=== PATIENT | male | born 1945 | race Caucasian/White ===

== ENCOUNTER 2021-09-19 11:37 | Emergency (ER) | payer MEDICARE, OTHER ==
[~2021-09-19] VITALS: Ht 182.9 cm; Wt 91.0 kg
--- NOTE | 2021-09-19 11:50 | RAD ---
EXAM: CT Head without IV contrast CLINICAL HISTORY: Reason: NEURO DEFICITS / Spl. Instructions: / History: COMPARISON: None. TECHNIQUE: Routine CT of the head without contrast. PQRS compliance statement - One or more of the following individualized dose reduction techniques wer e utilized for this study: 1. Automated exposure control 2. Adjustment of the mA and/or kV according to patient size 3. Use of iterative reconstruction technique FINDINGS: There is no evidence of hemorrhage, mass or extra-axial fluid collection. Region of encephalomalacia and pineda-white heterogeneity in the right frontal temporal region likely f rom prior infarct. Otherwise, baires-white differentiation is grossly maintained. Subcortical, perivent ricular as well as deep white matter foci of hypoattenuation likely changes of chronic small vessel d isease. There is no mass effect or shift of the intracranial structures. The ventricles and cerebral sulci are prominent for the patients stated age consistent with generaliz ed cerebral volume loss. The cerebellum and brainstem are unremarkable. The calvarium demonstrates no evidence of fracture or focal lesion. There is normal aeration of the visualized paranasal sinuses and mastoid air cells. The visualized portions of the orbits are normal. Atherosclerotic calcifications of the intracranial internal carotid and vertebral arteries is seen. IMPRESSION: 1. No evidence for acute intracranial hemorrhage. 2. Region of encephalomalacia and pineda-white heterogeneity in the right frontal temporal region like ly from prior infarct. If there is clinical concern for superimposed acute infarct, MRI is recommende d. 3. White matter changes likely chronic small vessel disease. Findings discussed with emergency room physician at 09/19/2021 11:45 AM. FOR INTERNAL CODING PURPOSES RESULT CODE: (C) Electronically signed by: Foster Acuna MD (09/19/2021 11:48 AM) [id number]
--- NOTE | 2021-09-19 11:50 | PHYS DOC ---
General Adult EDM: Chief Complaint: NEURO SYMPTOMS/DEFICITS HPI: HPI: 76-year-old male past medical history of CVA with left-sided hemiparesis and hemiplegia, diabetes, hyperlipidemia and history of A. fib on Eliquis, presents to the ED brought in by EMS as a code stroke, concern for sudden onset altered mental status, aphasia while eating breakfast. At baseline patient does have a right-sided gaze preference and intact speech. Patient's sister, Micaela Abbott present emergency department. Patient's brother, Kendrick Diego (who is a physician) is the medical DPOA also present. 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 Pt is a full code. Review of Systems: Review of Systems: ROS: Unobtainable due to aphasia and mental status Allergies: Allergies: Allergies Coded Allergies Type Severity Reaction Last Updated Verified No Known Drug Allergies 09/19/21 No Physical Exam: PE: Constitutional: Nontoxic appearing, in no distress, tachycardic and hypotensive on arrival HENT: Normocephalic, atraumatic, dry mucous membranes Eyes: EOMI, conjunctiva normal, no discharge. Neck: Normal range of motion, supple, Cardiovascular: S1/2 present, irregular rhythm Lungs & Thorax: bilateral equal chest rise, no tachypnea or increased work of breathing Abdomen: soft, no tenderness, Skin: Warm, dry, no erythema, no rash. [] Extremities: No tenderness, no cyanosis, Neurologic: Alert, moves right upper extremity to pain/localizes, no facial droop, Psychologic: Calm mood, normal affect EKG: EKG: A. fib and RVR 145 bpm, left axis deviation, QTC 49 four, T wave inversion one and aVL, no ST ovation or ST depression, PVC present Radiology/Procedures: Radiology/Procedures: IMAGING REPORT Signed PATIENT: LUDIN DIEGO ACCOUNT: [id number] : 1945 LOCATION: ER AGE: 76 SEX: M EXAM STATUS: REG ER ORD. PHYSICIAN: RENITA HERNANDEZ DO REASON: ALTERED MENTAL STATUS PROCEDURE: CHEST AP ONLY Single AP view of the chest. Comparison: 9. Indication: Altered mental status Findings: The heart is not enlarged. There is no pneumothorax or effusion. No air space or interstitial disease. Impression: 1. No acute cardiopulmonary process. Electronically signed by: Camilo Montaño MD (09/19/2021 12:45 PM) [id number] DICTATED AND SIGNED BY: CAMILO MONTAÑO MD DATE: 09/19/211244 CC: NON,STAFF; RENITA HERNANDEZ Paddy DO ~MTH0 0 IMAGING REPORT Signed PATIENT: LUDIN DIEGO ACCOUNT: [id number] : 1945 LOCATION: ER AGE: 76 SEX: M EXAM STATUS: REG ER ORD. PHYSICIAN: TESSA HADDAD APRN REASON: NEURO DEFICITS PROCEDURE: CT CODE STROKE HEAD WO EXAM: CT Head without IV contrast CLINICAL HISTORY: Reason: NEURO DEFICITS / Spl. Instructions: / History: COMPARISON: None. TECHNIQUE: Routine CT of the head without contrast. PQRS compliance statement - One or more of the following individualized dose reduction techniques were utilized for this study: 1. Automated exposure control 2. Adjustment of the mA and/or kV according to patient size 3. Use of iterative reconstruction technique FINDINGS: There is no evidence of hemorrhage, mass or extra-axial fluid collection. Region of encephalomalacia and pineda-white heterogeneity in the right frontal temporal region likely from prior infarct. Otherwise, baires-white differentiation is grossly maintained. Subcortical, periventricular as well as deep white matter foci of hypoattenuation likely changes of chronic small vessel disease. There is no mass effect or shift of the intracranial structures. The ventricles and cerebral sulci are prominent for the patients stated age consistent with generalized cerebral volume loss. The cerebellum and brainstem are unremarkable. The calvarium demonstrates no evidence of fracture or focal lesion. There is normal aeration of the visualized paranasal sinuses and mastoid air c ells. The visualized portions of the orbits are normal. Atherosclerotic calcifications of the intracranial internal carotid and vertebral arteries is seen. IMPRESSION: 1. No evidence for acute intracranial hemorrhage. 2. Region of encephalomalacia and pineda-white heterogeneity in the right frontal temporal region likely from prior infarct. If there is clinical concern for superimposed acute infarct, MRI is recommended. 3. White matter changes likely chronic small vessel disease. Findings discussed with emergency room physician at 09/19/2021 11:45 AM. FOR INTERNAL CODING PURPOSES RESULT CODE: (C) Electronically signed by: Foster Garcia MD (09/19/2021 11:48 AM) [id number] DICTATED AND SIGNED BY: FOSTER GARCIA MD DATE: 09/19/21 1144 CC: TESSA HADDAD APRN; NON,STAFF; RENITA HERNANDEZ DO ~MTH0 0 IMAGING REPORT Signed PATIENT: LUDIN DIEGO ACCOUNT: [id number] : 1945 LOCATION: ER AGE: 76 SEX: M EXAM STATUS: REG ER ORD. PHYSICIAN: RENITA HERNANDEZ DO REASON: unresponsive PROCEDURE: CT ANGIOGRAPHY HEAD AND NECK EXAM: 1. CTA HEAD WITH AND WITHOUT CONTRAST. 2. CTA NECK WITH AND WITHOUT CONTRAST. HISTORY: Unresponsive, cerebrovascular accident. TECHNIQUE: Computed tomographic angiography of the head and neck was performed before and after the intravenous administration of iodinated contrast. Three- dimensional reconstructions were also performed. One or more of the following individualized dose reduction techniques were utilized for this examination: 1. Automated exposure control. 2. Adjustment of the mA and/or kV according to patient size. 3. Use of iterative reconstruction technique. COMPARISON: Today's CT. FINDINGS: Angiographic findings: The aortic arch has a typical branching pattern. The arch vessels demonstrate present at the medial thickening. There is mild stenosis at the origin of the left common carotid artery. More distally, predominantly uncalcified plaquing results in mild stenosis of the left carotid bulb with luminal diameter similar to the internal carotid diameter. There is no significant right CCA stenosis. There is subtotal stenosis just beyond the origin of the right cervical internal carotid artery secondary to noncalcified plaquing. It is patent more distally, but with mild perfusion delay consistent with significant proximal stenosis. There is no significant left cervical internal carotid artery stenosis. The external carotid systems are patent. There is severe stenosis at the origin of the left vertebral artery. There is multifocal mild to moderate stenosis within its cervical portion. A density adjacent to the lumen at C1 is likely an atherosclerotic calcification. The left vertebral artery occludes just proximal to the foramen magnum. The left posterior inferior cerebellar artery appears to fill by collateralization from the anterior inferior cerebellar artery. There is moderate atherosclerotic irregularity of the right vertebral artery at the foramen magnum with only mild stenosis. There is multifocal mild to moderate stenosis within the midportion of the b asilar artery. Both posterior cerebral arteries are patent. The posterior communicating arteries are visualized. Small excrescences from the lumen of the cavernous internal carotid arteries most likely reflect infundibula. These measure 1 mm on the right and 2 mm on the left. A small aneurysm is suspected along the inferior aspect of the right supraclinoid internal carotid artery measuring 2 mm. There is mild to moderate stenosis of both supraclinoid internal carotid arteries. The right middle cerebral artery territory is attenuated in the region of the chronic infarct, but remains patent. The left middle cerebral artery is patent.. The anterior cerebral arteries are patent. The anterior communicating artery is visualized. Nonangiographic findings: There is no intracranial hemorrhage. There is a moderate to large chronic infarct throughout the right middle cerebral artery territory. There is mild chronic microangiopathic white matter change elsewhere. The ventricles are normal in size and position. The paranasal sinuses appear clear. The orbits are unremarkable. The temporal bones are unremarkable. Bone windows reveal no suspicious lesions. The lung apices demonstrate mild bilateral groundglass opacities. There is scarring or atelectasis in the superior segment of the right lower lobe. The parotid glands and submandibular glands are unremarkable. An 8 mm nodule in the right thyroid lobe is most likely benign. Further assessed sonographically if there is persistent concern. There are no laryngeal or pharyngeal masses. There are no pathologically enlarged lymph nodes. IMPRESSION: 1. Subtotal stenosis of the right proximal cervical internal carotid artery. 2. Occlusion of the left vertebral artery just proximal to the foramen magnum may be chronic. It is severely stenotic proximally. 3. Mild to moderate stenosis of the right vertebral artery at the foramen magnum. 4. Multifocal mild to moderate stenosis of the basilar artery. 5. Mild to moderate stenosis of both supraclinoid internal carotid arteries. 6. Small outpouchings along the intracranial internal carotid arteries most likely reflect infundibula. One inferiorly along the right supraclinoid internal carotid artery may be a 2 mm aneurysm. This could be followed in one year if there is persistent concern. 7. Moderate to large chronic right middle cerebral artery territory infarct. 8. Mild interstitial infiltrates in the apices may reflect atelectasis. Correlate to exclude atypical pneumonia. These findings were called to Dr. Hernandez by Fredis Nayak on 09/19/2021 at 1:00 PM. PQRS Compliance Statement - Stenosis calculations for CT, MR and conventional angiography are based upon measurement of the distal ICA diameter in accordance with the NASCET methodology. Stenosis calculations for carotid ultrasound stud ies are derived from validated velocity criteria which are known to correlate with the NASCET methodology. Electronically signed by: Shamar Nayak MD (09/19/2021 1:17 PM) [id number] DICTATED AND SIGNED BY: FATOU NAYAK MD DATE: 09/19/21 1249 CC: NON,STAFF; RENITA HERNANDEZ DO ~MTH0 0 IMAGING REPORT Signed PATIENT: LUDIN DIEGO ACCOUNT: [id number] : 1945 LOCATION: ER AGE: 76 SEX: M EXAM STATUS: REG ER ORD. PHYSICIAN: RENITA HERNANDEZ DO REASON: ams, r/o renal obstruction PROCEDURE: CT ABDOMEN PELVIS WO CONTRAST CT ABDOMEN+PELVIS WO History: Altered mental status, rule out renal obstruction. Comparison: None available. Technique: CT of the abdomen and pelvis without contrast. Findings: Excretory contrast is present following recent CT angiogram of the head and neck. Bilateral dependent atelectasis. Calcifications of the mitral valve and aortic annulus. Moderate coronary artery calcifications. The gallbladder is markedly distended with an irregular strandy appearance of the gallbladder wall particularly adjacent to the hepatic gallbladder fossa. No hepatic masses are identified. The common bile duct is nondistended. Mild pancreatic atrophy. The spleen and adrenal glands are unremarkable. No hydronephrosis. Small bilateral renal hypodensities too small to characterize likely cysts. Mild bilateral perinephric stranding. No ureterolithiasis is identified. The bladder is decompressed by Marie catheter. The stomach and small bowel are unremarkable. Normal appendix. Mild sigmoid diverticulosis. No pericolonic inflammatory changes. No intra-abdominal free air or free fluid. No adenopathy. Atherosclerotic calcifications of the aortic and iliac arteries without aneurysm. Soft tissues are unremarkable. Degenerative changes of the spine and hips. Impression: 1. Distended gallbladder with adjacent inflammatory changes and irregular strandy appearance of the gallbladder wall concerning for acute cholecystitis. Given irregularity of wall, gangrenous cholecystitis is not excluded. There is no gallbladder emphysema identified. 2. No nephrolithiasis or hydronephrosis. 3. Sigmoid diverticulosis without evidence of diverticulitis. ------ Exposure: One or more of the following individualized dose reduction techniques were utilized for this examination: 1. Automated exposure control 2. Adjustment of the mA and/or kV according to patient size 3. Use of iterative reconstruction technique. Electronically signed by: Wong Montgomery MD (09/19/2021 2:58 PM) [facility] DICTATED AND SIGNED BY: WONG MONTGOMERY MD DATE: 09/19/21 1447 CC: NON,STAFF; [facility] ~MTH0 0 Heart Score: C/O Chest Pain: N/A Risk Factors: Risk Factors: DM, Current or recent (<one month) smoker, HTN, HLP, family history of CAD, obesity. Risk Scores: Score 0 - 3: 2.5% MACE over next 6 weeks - Discharge Home Score 4 - 6: 20.3% MACE over next 6 weeks - Admit for Clinical Observation Score 7 - 10: 72.7% MACE over next 6 weeks - Early Invasive Strategies Course & Med Decision Making: Course & Med Decision Making Pertinent Labs and Imaging studies reviewed. (See chart for details) Patient presents the ED concern for shock (suspect septic 2/2 uti) with multi organ failure-prior for comparison but does appear to have prerenal failure and transaminitis. I discussed CT findings with stroke neurologist Dr. Staley who reviewed these images with patient's history of prior stroke in Jul 2021. Dr. Staley reported that patient's right dominant cervical internal carotid artery and left vertebral artery stenosis does appear to be slightly more stenotic today. In July patient had similar findings on CT but MCA was occluded distally, thus patient was not a candidate for revascularization. Dr. Whiteside reports patient's MCA is currently patent and to consider opening patient's right ICA once infection is cleared. has no hospital beds to accept transfer. Patient's map in low 60's/upper 50's after 2 L bolus. Patient started on broad- spectrum antibiotics and Levophed. Had a brief generalized seizure that lasted for under 1 minute in the ED. Pt's mental status after fluids improved-was able to speak minimally and move both right arm/leg, still not moving left side with right gaze preference. Accepted to [facility] ICU by Dr. Taveras. I spoke to patient's son who is patient's medical [employer]-has paperwork with them. Patient son is a physician and while patient is a full code, does not want CPR performed longer than 15 minutes for patient, no more than three doses of epinephrine. I have spoken with the patient and/or caregivers. I have explained the patient's condition, diagnosis and treatment plan based on the information available to me at this time. I have answered the patient's and/or caregivers questions and answered any concerns. The patient and/or caregivers have as good an understanding of the patient's diagnosis, condition and treatment plan as can be expected at this point. The patient has been stabilized within the capability of the emergency department. The patient will be transported for further care and management or will be moved to an observation or inpatient service. I have communicated with the staff or medical practitioner taking over this patient's care. Critical Care: Authorized and Performed by: Renita Hernandez DO Total critical care time: approximately 60 minutes Due to a high probability of clinically significant, life threatening deterioration, the patient required my highest level of preparedness to intervene emergently and I personally spent this critical care time directly and personally managing the patient. This critical care time included obtaining a history; examining the patient; pulse oximetry; ventilator management if necessary; ordering and review of studies; arranging urgent treatment with development of a management plan; evaluation of patient's response to treatment; frequent reassessment; discussion with patient/family; and, discussions with other providers. This critical care time was performed to assess and manage the high probability of imminent, life-threatening deterioration that could result in multi-organ failure. It was exclusive of separately billable procedures and treating other patients and teaching time. Please see MDM section and the rest of the note for further information on patient assessment and treatment. Dragon Disclaimer: Dragon Disclaimer: This electronic medical record was generated, in whole or in part, using a voice recognition dictation system. Departure Departure: Impression: Primary Impression: Septic shock Additional Impressions: Renal failure Transaminitis AMS (altered mental status) Seizure Disposition: 02 [facility] (to [facility], accepted by Dr. Taveras) Condition: CRITICAL Referrals: NON,STAFF (PCP) RENITA HERNANDEZ DO Sep 19, 2021 11:50
[2021-09-19] MEDS ORDERED: NALOXONE 0.4 MG/ML VIAL. ONE (11:54)
[2021-09-19] MEDS ORDERED: IV NORMAL SALINE 1,000ML 1,000 ML IV ONE ×3 (12:15→14:30)
[2021-09-19 12:31] LABS: BASO % 0 % (0-3); EOS % 0 % (0-3); HEMATOCRIT 43.4 % (39.0-53.0); HEMOGLOBIN 13.9 g/dL (13.0-17.5); LYMPH # 1.3 x10^3/uL (1.0-4.8); LYMPH % 6 % (24-48); MEAN CORPUSCULAR HEMOGLOBIN 29 pg (25-35); MEAN CORPUSCULAR HGB CONC 32 g/dL (31-37); MEAN CORPUSCULAR VOLUME 91 fL (79-100); MONO # 1.5 x10^3/uL (0.0-1.1); MONO % 7 % (0-9); NEUT # 19.7 x10^3uL (1.8-7.7); NEUT % 87 % (31-73); PLATELET COUNT 191 x10^3/uL (140-400); RED BLOOD COUNT 4.75 x10^6/uL (4.30-5.70); RED CELL DISTRIBUTION WIDTH 16.4 % (11.5-14.5); WHITE BLOOD COUNT 22.5 x10^3/uL (4.0-11.0)
[2021-09-19 12:34] LABS: CREATININE 3.4 mg/dL (0.7-1.3); GFR 17.6; POTASSIUM 4.3 mmol/L (3.5-5.1)
[2021-09-19 12:39] LABS: ALBUMIN 2.1 g/dL (3.4-5.0); ALBUMIN/GLOBULIN RATIO 0.4 (1.0-1.7); TOTAL BILIRUBIN 0.6 mg/dL (0.2-1.0)
--- NOTE | 2021-09-19 12:48 | RAD ---
Single AP view of the chest. Comparison: 9. Indication: Altered mental status Findings: The heart is not enlarged. There is no pneumothorax or effusion. No air space or interstitial diseas e. Impression: 1. No acute cardiopulmonary process. Electronically signed by: Camilo Montaño MD (09/19/2021 12:45 PM) [id number]
--- NOTE | 2021-09-19 13:20 | RAD ---
EXAM: 1. CTA HEAD WITH AND WITHOUT CONTRAST. 2. CTA NECK WITH AND WITHOUT CONTRAST. HISTORY: Unresponsive, cerebrovascular accident. TECHNIQUE: Computed tomographic angiography of the head and neck was performed before and after the i ntravenous administration of iodinated contrast. Three-dimensional reconstructions were also performe d. One or more of the following individualized dose reduction techniques were utilized for this exami nation: 1. Automated exposure control. 2. Adjustment of the mA and/or kV according to patient size. 3. Use of iterative reconstruction technique. COMPARISON: Today's CT. FINDINGS: Angiographic findings: The aortic arch has a typical branching pattern. The arch vessels demonstrate present at the medial thickening. There is mild stenosis at the origin of the left common carotid art neeraj. More distally, predominantly uncalcified plaquing results in mild stenosis of the left carotid bulb w ith luminal diameter similar to the internal carotid diameter. There is no significant right CCA sten osis. There is subtotal stenosis just beyond the origin of the right cervical internal carotid artery secondary to noncalcified plaquing. It is patent more distally, but with mild perfusion delay consis tent with significant proximal stenosis. There is no significant left cervical internal carotid arter y stenosis. The external carotid systems are patent. There is severe stenosis at the origin of the left vertebral artery. There is multifocal mild to mode rate stenosis within its cervical portion. A density adjacent to the lumen at C1 is likely an atheros clerotic calcification. The left vertebral artery occludes just proximal to the foramen magnum. The l eft posterior inferior cerebellar artery appears to fill by collateralization from the anterior infer ior cerebellar artery. There is moderate atherosclerotic irregularity of the right vertebral artery a t the foramen magnum with only mild stenosis. There is multifocal mild to moderate stenosis within the midportion of the basilar artery. Both poste rior cerebral arteries are patent. The posterior communicating arteries are visualized. Small excrescences from the lumen of the cavernous internal carotid arteries most likely reflect infu ndibula. These measure 1 mm on the right and 2 mm on the left. A small aneurysm is suspected along th e inferior aspect of the right supraclinoid internal carotid artery measuring 2 mm. There is mild to moderate stenosis of both supraclinoid internal carotid arteries. The right middle cerebral artery te rritory is attenuated in the region of the chronic infarct, but remains patent. The left middle cereb ral artery is patent.. The anterior cerebral arteries are patent. The anterior communicating artery i s visualized. Nonangiographic findings: There is no intracranial hemorrhage. There is a moderate to large chronic i nfarct throughout the right middle cerebral artery territory. There is mild chronic microangiopathic white matter change elsewhere. The ventricles are normal in size and position. The paranasal sinuses appear clear. The orbits are unremarkable. The temporal bones are unremarkable. Bone windows reveal no suspicious lesions. The lung apices demonstrate mild bilateral groundglass op acities. There is scarring or atelectasis in the superior segment of the right lower lobe. The parotid glands and submandibular glands are unremarkable. An 8 mm nodule in the right thyroid lob e is most likely benign. Further assessed sonographically if there is persistent concern. There are no laryngeal or pharyngeal masses. There are no pathologically enlarged lymph nodes. IMPRESSION: 1. Subtotal stenosis of the right proximal cervical internal carotid artery. 2. Occlusion of the left vertebral artery just proximal to the foramen magnum may be chronic. It is s everely stenotic proximally. 3. Mild to moderate stenosis of the right vertebral artery at the foramen magnum. 4. Multifocal mild to moderate stenosis of the basilar artery. 5. Mild to moderate stenosis of both supraclinoid internal carotid arteries. 6. Small outpouchings along the intracranial internal carotid arteries most likely reflect infundibul a. One inferiorly along the right supraclinoid internal carotid artery may be a 2 mm aneurysm. This c ould be followed in one year if there is persistent concern. 7. Moderate to large chronic right middle cerebral artery territory infarct. 8. Mild interstitial infiltrates in the apices may reflect atelectasis. Correlate to exclude atypical pneumonia. These findings were called to Dr. Coombs by Fredis Nayak on 09/19/2021 at 1:00 PM. PQRS Compliance Statement - Stenosis calculations for CT, MR and conventional angiography are based u hector measurement of the distal ICA diameter in accordance with the NASCET methodology. Stenosis calcu lations for carotid ultrasound studies are derived from validated velocity criteria which are known t o correlate with the NASCET methodology. Electronically signed by: Shamar Nayak MD (09/19/2021 1:17 PM) [id number]
--- NOTE | 2021-09-19 13:53 | EKG ---
[address] [address] Test Date: 2021-09-19 Test Time: 11:48:33 Pat Name: LUDIN ESTRADA Department: Room: Gender: M Treasury Assistant: : 1945 Requested By: HELEN HERNANDEZ Order Number: [id number] Reading MD: Rei Pathak Measurements Intervals [place] Rate: 145 P: [place]: QRS: -25 QRSD: 92 T: 153 QT: 316 QTc: 494 Interpretive Statements ATRIAL FIBRILLATION WITH RVR LEFTWARD AXIS QRS(T) CONTOUR ABNORMALITY CONSIDER ANTEROSEPTAL MYOCARDIAL DAMAGE CONSISTENT WITH INFERIOR INFARCT PROBABLY OLD T ABNORMALITY IN HIGH LATERAL LEADS ABNORMAL ECG RI6.02 No previous ECG available for comparison Electronically Signed On 09-21-2021 8:20:44 [employer] by Rei Pathak
[2021-09-19] MEDS ORDERED: IV RINGERS SOLUTION,LACTATED 1,000 ML IV ONE (14:00)
[2021-09-19 14:09] LABS: % ATYL 3 % (0-0); % BANDS 4 % (0-9); % LYMPHS 5 % (24-48); % MONOS 6 % (0-10); % MYELOS 1 % (0-0); % SEGS 81 % (35-66); NUCLEATED RBC 1
[2021-09-19 14:21] LABS: PLT ESTIMATE ADEQUATE (ADEQUATE)
[2021-09-19 14:24] LABS: TARGET CELLS PRESENT
[2021-09-19] MEDS ORDERED: VANCOMYCIN PER PHARMACY MC PRN (15:00)
[2021-09-19] MEDS ORDERED: PIPERACILLIN/TAZOBACTAM 4.5 GM in IV NORMAL SALINE 50ML 50 ML IV ONE (15:00)
--- NOTE | 2021-09-19 15:01 | RAD ---
CT ABDOMEN+PELVIS WO History: Altered mental status, rule out renal obstruction. Comparison: None available. Technique: CT of the abdomen and pelvis without contrast. Findings: Excretory contrast is present following recent CT angiogram of the head and neck. Bilateral dependent atelectasis. Calcifications of the mitral valve and aortic annulus. Moderate janessa nary artery calcifications. The gallbladder is markedly distended with an irregular strandy appearance of the gallbladder wall pa rticularly adjacent to the hepatic gallbladder fossa. No hepatic masses are identified. The common bi le duct is nondistended. Mild pancreatic atrophy. The spleen and adrenal glands are unremarkable. No hydronephrosis. Small bilateral renal hypodensities too small to characterize likely cysts. Mild bila teral perinephric stranding. No ureterolithiasis is identified. The bladder is decompressed by Marie catheter. The stomach and small bowel are unremarkable. Normal appendix. Mild sigmoid diverticulosis. No tariq lonic inflammatory changes. No intra-abdominal free air or free fluid. No adenopathy. Atherosclerotic calcifications of the aortic and iliac arteries without aneurysm. Soft tissues are unremarkable. Deg enerative changes of the spine and hips. Impression: 1. Distended gallbladder with adjacent inflammatory changes and irregular strandy appearance of the gallbladder wall concerning for acute cholecystitis. Given irregularity of wall, gangrenous cholecyst itis is not excluded. There is no gallbladder emphysema identified. 2. No nephrolithiasis or hydronephrosis. 3. Sigmoid diverticulosis without evidence of diverticulitis. ------ Exposure: One or more of the following individualized dose reduction techniques were utilized for thi s examination: 1. Automated exposure control 2. Adjustment of the mA and/or kV according to patient size 3. Use of iterative reconstruction technique. Electronically signed by: Wong Whiting MD (09/19/2021 2:58 PM) [facility]
[2021-09-19] MEDS ORDERED: VANCOMYCIN 2 GM in IV NORMAL SALINE 500ML 500 ML IV ONE (15:30)
[2021-09-19] MEDS ORDERED: PIPERACILLIN/TAZOBACTAM 4.5 GM VIAL IV ONE (15:31)
[2021-09-19] MEDS ORDERED: IV NORMAL SALINE 50ML 50 ML ONE (15:31)
[2021-09-19] MEDS: NOREPINEPHRINE BITARTRATE 8 MG in IV DEXTROSE 5% 250 ML IV PRN (16:00)
[2021-09-19 17:00] LABS: BACTERIA,URINE FEW /HPF (0-FEW); BILIRUBIN,URINE SMALL (NEG); CLARITY,URINE TURBID; COLOR,URINE BROWN; GLUCOSE,URINE NEG (NEG); NITRITE,URINE NEG (NEG); RBC,URINE TNTC /HPF (0-2); SQUAMOUS EPITHELIAL CELL,UR OCC /LPF; UROBILINOGEN,URINE 0.2 mg/dL (0.2 mg/dL)
[2021-09-20] MEDS: NOREPINEPHRINE BITARTRATE 8 MG in IV DEXTROSE 5% 250 ML IV PRN (03:41)
[2021-09-20] MEDS ORDERED: VANCOMYCIN PER PHARMACY MC PRN (04:00)
[2021-09-20] MEDS ORDERED: PIPERACILLIN/TAZOBACTAM 4.5 GM in IV NORMAL SALINE 50ML 50 ML IV ONE (04:00)
[2021-09-20] MEDS ORDERED: IV RINGERS SOLUTION,LACTATED 1,000 ML IV ONE ×2 (04:00→17:30)
[2021-09-20] MEDS ORDERED: PIPERACILLIN/TAZOBACTAM 2.25 GM VIAL IV ONE ×3 (05:04→18:02)
[2021-09-20] MEDS ORDERED: IV NORMAL SALINE 50ML 50 ML ONE ×3 (05:04→18:01)
[2021-09-20] MEDS: PIPERACILLIN/TAZOBACTAM 2.25 GM in IV NORMAL SALINE 50ML 50 ML IV SCH ×3 (05:12→18:16)
[2021-09-20 06:00] LABS: BASO # 0.1 x10^3/uL (0.0-0.2); BASO % 0 % (0-3); EOS % 0 % (0-3); HEMATOCRIT 36.5 % (39.0-53.0); HEMOGLOBIN 11.6 g/dL (13.0-17.5); LYMPH # 0.9 x10^3/uL (1.0-4.8); LYMPH % 4 % (24-48); MEAN CORPUSCULAR HEMOGLOBIN 29 pg (25-35); MEAN CORPUSCULAR HGB CONC 32 g/dL (31-37); MEAN CORPUSCULAR VOLUME 92 fL (79-100); MONO # 1.8 x10^3/uL (0.0-1.1); MONO % 7 % (0-9); NEUT # 22.4 x10^3uL (1.8-7.7); NEUT % 89 % (31-73); PLATELET COUNT 152 x10^3/uL (140-400); RED BLOOD COUNT 3.98 x10^6/uL (4.30-5.70); RED CELL DISTRIBUTION WIDTH 16.7 % (11.5-14.5); WHITE BLOOD COUNT 25.2 x10^3/uL (4.0-11.0)
[2021-09-20 06:08] LABS: CALCIUM 8.1 mg/dL (8.5-10.1); CREATININE 2.8 mg/dL (0.7-1.3); POTASSIUM 3.8 mmol/L (3.5-5.1)
[2021-09-20 06:13] LABS: ALBUMIN 1.7 g/dL (3.4-5.0); ALBUMIN/GLOBULIN RATIO 0.3 (1.0-1.7); TOTAL BILIRUBIN 0.5 mg/dL (0.2-1.0); TOTAL PROTEIN 6.7 g/dL (6.4-8.2)
[2021-09-20] MEDS ORDERED: FLUCONAZOLE 100MG/50ML PREMIX 50 ML IV SCH (11:00)
[2021-09-20] MEDS ORDERED: LIDOCAINE 2% VISCOUS 15 ML SOLUTION. SWSW PRN (17:30)
[2021-09-20 23:13] LABS: BASO % 0 % (0-3); EOS % 0 % (0-3); HEMATOCRIT 36.9 % (39.0-53.0); HEMOGLOBIN 11.7 g/dL (13.0-17.5); LYMPH % 5 % (24-48); MEAN CORPUSCULAR HEMOGLOBIN 29 pg (25-35); MEAN CORPUSCULAR HGB CONC 32 g/dL (31-37); MEAN CORPUSCULAR VOLUME 91 fL (79-100); MONO # 1.4 x10^3/uL (0.0-1.1); MONO % 7 % (0-9); NEUT # 17.8 x10^3uL (1.8-7.7); NEUT % 88 % (31-73); PLATELET COUNT 151 x10^3/uL (140-400); RED BLOOD COUNT 4.06 x10^6/uL (4.30-5.70); RED CELL DISTRIBUTION WIDTH 16.4 % (11.5-14.5); WHITE BLOOD COUNT 20.3 x10^3/uL (4.0-11.0)
[2021-09-20 23:22] LABS: CALCIUM 8.5 mg/dL (8.5-10.1); GFR 32.5; POTASSIUM 3.1 mmol/L (3.5-5.1)
[2021-09-20 23:27] LABS: ALBUMIN 1.7 g/dL (3.4-5.0); ALBUMIN/GLOBULIN RATIO 0.3 (1.0-1.7); MAGNESIUM 2.7 mg/dL (1.8-2.4); TOTAL BILIRUBIN 0.5 mg/dL (0.2-1.0); TOTAL PROTEIN 6.7 g/dL (6.4-8.2)
[2021-09-21] MEDS ORDERED: PIPERACILLIN/TAZOBACTAM 2.25 GM VIAL IV ONE ×2 (00:07→05:57)
[2021-09-21] MEDS ORDERED: IV NORMAL SALINE 50ML 50 ML ONE ×2 (00:07→05:57)
--- NOTE | 2021-09-21 01:47 | RAD ---
Limited abdomen ultrasound COMPARISON: CT abdomen September 19, 2021 HISTORY: Right upper quadrant abdominal pain. Cholecystitis. FINDINGS: Gallbladder filled with sludge and abnormally distended measuring 11.7 cm in length and 6.6 cm in diameter. Adenomyomatosis with comet tail artifact at the fundus. Adjacent to the fundus there is a small loculated collection while a portion of this could be a phrygian cap based on the combine d sonographic and CT imaging features a walled off contained rupture of the gallbladder fundus. Gangrenous cholecystitis is also a consideration. No biliary ductal dilation. Common bile duct diameter 6 mm. Right renal length 11.1 metastases. Lower pole 1.5 cm simple cyst, Bosniak 1. Spleen and left kidney were not evaluated. Limited visualization of the liver due to rib shadowing. Normal liver echogenicity. No liver mass evon dent. Pancreas, aorta and IVC cannot be visualized due to shadowing from bowel gas. IMPRESSION: Abnormal distention of the gallbladder with sludge. Gallbladder adenomyomatosis. There is a hypoechoic oval collection along the gallbladder fundus which with the combined US and CT imaging features raises suspicion of contained perforation of the fundus from gangrenous cholecystitis. See miguel painter. Electronically signed by: Anton Jacobo MD (09/21/2021 1:44 AM) [facility] [place]
[2021-09-21] MEDS ORDERED: MORPHINE SULFATE 2 MG/ML DISP.SYRIN. IV ONE (03:00)
[2021-09-21] MEDS: PIPERACILLIN/TAZOBACTAM 2.25 GM in IV NORMAL SALINE 50ML 50 ML IV SCH ×2 (06:00)
[2021-09-21 06:33] LABS: BASO # 0.1 x10^3/uL (0.0-0.2); BASO % 0 % (0-3); EOS % 0 % (0-3); HEMATOCRIT 37.7 % (39.0-53.0); LYMPH # 0.9 x10^3/uL (1.0-4.8); LYMPH % 5 % (24-48); MEAN CORPUSCULAR HEMOGLOBIN 29 pg (25-35); MEAN CORPUSCULAR HGB CONC 32 g/dL (31-37); MEAN CORPUSCULAR VOLUME 91 fL (79-100); MONO # 1.3 x10^3/uL (0.0-1.1); MONO % 7 % (0-9); NEUT # 16.3 x10^3uL (1.8-7.7); NEUT % 88 % (31-73); PLATELET COUNT 157 x10^3/uL (140-400); RED BLOOD COUNT 4.13 x10^6/uL (4.30-5.70); RED CELL DISTRIBUTION WIDTH 16.2 % (11.5-14.5); WHITE BLOOD COUNT 18.5 x10^3/uL (4.0-11.0)
[2021-09-21 06:42] LABS: CALCIUM 8.3 mg/dL (8.5-10.1); CREATININE 1.8 mg/dL (0.7-1.3); GFR 36.7
[2021-09-21 06:47] LABS: ALBUMIN 1.6 g/dL (3.4-5.0); ALBUMIN/GLOBULIN RATIO 0.3 (1.0-1.7); TOTAL BILIRUBIN 0.5 mg/dL (0.2-1.0); TOTAL PROTEIN 6.5 g/dL (6.4-8.2)
[2021-09-21 06:57] LABS: BACTERIA,URINE 0 /HPF (0-FEW); BILIRUBIN,URINE NEG (NEG); CLARITY,URINE TURBID; COLOR,URINE BROWN; GLUCOSE,URINE 250 mg/dL (NEG); NITRITE,URINE NEG (NEG); RBC,URINE TNTC /HPF (0-2); UROBILINOGEN,URINE 0.2 mg/dL (0.2 mg/dL); WBC,URINE RARE /HPF (0-4)
[2021-09-21] MEDS ORDERED: IV 1/2 NORMAL SALINE 1,000 ML IV ONE (07:00)
[2021-09-21 10:03] VITALS: BP 134/65
[2021-09-21] MEDS ORDERED: VANCOMYCIN 1.5 GM in IV NORMAL SALINE 500ML 500 ML IV SCH (16:00)
== END 2021-09-21 10:59 | disposition short-term general hospital (02) ==
LOC: ER 11:37
DX: A41.9 Sepsis, unspecified organism (principal); R65.21 Severe sepsis with septic shock; N17.9 Acute kidney failure, unspecified; R74.01 Elevation of levels of liver transaminase levels; R56.9 Unspecified convulsions; I48.91 Unspecified atrial fibrillation; E78.5 Hyperlipidemia, unspecified; Z20.822 Contact with and (suspected) exposure to COVID-19; Z86.73 Personal history of transient ischemic attack (TIA), and cerebral infarction without residual deficits
CPT/HCPCS: 36415; 51702; 70450; 70496; 70498; 71045; 74176; 76705; 80053; 81001; 82947; 83605; 83735; 85007; 85025; 85610; 85730; 87040; 87086; 87426; 93005; 96361; 96365; 96366; 96367; 96368; 96375; 99291; J2060; J2270; J2543; J3370; J7030; J7040; J7120; U0003

== ENCOUNTER 2021-10-04 00:45 | Emergency (ER) | payer MEDICARE, OTHER ==
[~2021-10-04] VITALS: Ht 182.9 cm; Wt 91.0 kg
[2021-10-04 00:55] VITALS: BP 140/76
--- NOTE | 2021-10-04 01:01 | PHYS DOC ---
Past History Past Medical History: CVA, Dementia, Diabetes, TIA Additional Past Medical Histor: GOUT Past Surgical History: Other Alcohol Use: None General Adult HPI: HPI: " I pulled out my tube..." Patient is a 76 year old male who presents with above hx of pulling out his GTube. [facility] Marie 22 placed in feeding tube site. Filled with 10 cc . Tube flushed well. Pt. discharged to [facility]. Recommend replace Feeding tube by GI in out pt. apt. patient resident at [facility] since 09/13/2021. 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 Dysphagia, speech defects, dysarthria, spondylomiosis, diabetes, idiopathic gout, vitamin D deficiency, obesity, hyperlipidemia, atrial fib, scoliosis, and deconditioning. Patient only follows with . At the skilled nursing. Review of Systems: Review of Systems: Constitutional: Denies fever or chills Eyes: Denies change in visual acuity HENT: Denies nasal congestion or sore throat Respiratory: Denies cough or shortness of breath Cardiovascular: Denies chest pain or edema GI: Denies abdominal pain, nausea, vomiting, bloody stools or diarrhea . Complains he pulled out his G-tube : Denies dysuria Musculoskeletal: Denies back pain or joint pain Integument: Denies rash Neurologic: Denies headache, focal weakness or sensory changes Endocrine: Denies polyuria or polydipsia Lymphatic: Denies swollen glands Psychiatric: Denies depression or anxiety Family History: Family History: Noncontributory Current Medications: Current Meds: See nursing for home meds Allergies: Allergies: Allergies Coded Allergies Type Severity Reaction Last Updated Verified No Known Drug Allergies 09/19/21 No Physical Exam: PE: Constitutional: , no acute distress, non-toxic appearance. [] HENT: Normocephalic, atraumatic, bilateral external ears normal, oropharynx moist, no oral exudates, nose normal. [] Eyes: PERRLA, EOMI, conjunctiva normal, no discharge. [] Neck: Normal range of motion, no tenderness, supple, no stridor. [] Cardiovascular:Heart rate regular rhythm, no murmur PMI to the left Lungs & Thorax: Bilateral breath sounds basilar crackles on auscultation [] Abdomen: Bowel sounds normal, soft, no tenderness, no masses, no pulsatile masses. G-tube site has a small amount of bleeding. Apparently has pulled out G-tube with balloon up Skin: Warm, dry, no erythema, no rash. Poor turgor. Back: No tenderness, no CVA tenderness. [] Extremities: No tenderness, no cyanosis, no clubbing, ROM intact, no edema. Right antecubital site Neurologic: Alert and oriented to name and place, deficits on the left, chronic s, no new focal deficits noted. [] Psychologic: Affect anxious, judgement impaired, mood depressed. EKG: EKG: [] Radiology/Procedures: Radiology/Procedures: [] Heart Score: C/O Chest Pain: N/A Risk Factors: Risk Factors: DM, Current or recent (<one month) smoker, HTN, HLP, family history of CAD, obesity. Risk Scores: Score 0 - 3: 2.5% MACE over next 6 weeks - Discharge Home Score 4 - 6: 20.3% MACE over next 6 weeks - Admit for Clinical Observation Score 7 - 10: 72.7% MACE over next 6 weeks - Early Invasive Strategies Course & Med Decision Making: Course & Med Decision Making Pertinent Labs and Imaging studies reviewed. (See chart for details) Recommend follow-up GI outpatient for gastric tube placement. He is fully currently as a placement for G-tube until that time. Impression: 1. Lost of G-tube- feeding tube.- Tube replaced with Marie 22 [] Dragon Disclaimer: Dragon Disclaimer: This electronic medical record was generated, in whole or in part, using a voice recognition dictation system. Departure Departure: Referrals: NON,STAFF (PCP) Dragon Disclaimer This chart was dictated in whole or in part using Voice Recognition software in a busy, high-work load, and often noisy Emergency Department environment. It may contain unintended and wholly unrecognized errors or omissions. Dragon Disclaimer This chart was dictated in whole or in part using Voice Recognition software in a busy, high-work load, and often noisy Emergency Department environment. It may contain unintended and wholly unrecognized errors or omissions. DIANE RAND MD Oct 04, 2021 01:01
[2021-10-04] MEDS ORDERED: ATORVASTATIN CA80 MG PO (01:58)
[2021-10-04] MEDS ORDERED: ALBU2.5V8 INH (01:58)
[2021-10-04] MEDS ORDERED: SALI44.3 MM (01:58)
[2021-10-04] MEDS ORDERED: AMOX600S19 PO (01:58)
== END 2021-10-04 01:00 ==
LOC: ER 00:45
DX: K94.23 Gastrostomy malfunction (principal); F03.90 Unspecified dementia, unspecified severity, without behavioral disturbance, psychotic disturbance, mood disturbance, and anxiety; E11.9 Type 2 diabetes mellitus without complications; E78.5 Hyperlipidemia, unspecified; I48.91 Unspecified atrial fibrillation; E66.9 Obesity, unspecified; Z86.73 Personal history of transient ischemic attack (TIA), and cerebral infarction without residual deficits; Z68.27 Body mass index [BMI] 27.0-27.9, adult
CPT/HCPCS: 43762; 99285

== ENCOUNTER 2021-10-04 23:00 | Emergency (ER) | payer MEDICARE, OTHER ==
[~2021-10-04] VITALS: Ht 182.9 cm; Wt 91.0 kg
[~2021-10-04 23:00] MED LIST: ALBU2.5V8 INH; AMOX600S19 PO; ATORVASTATIN CA80 MG PO; EPINEPHrine SYRINGE 1 MG/10 ML SYRINGE. ONE; SALI44.3 MM
[2021-10-04] MEDS ORDERED: IV NORMAL SALINE 250ML 250 ML ONE (23:35)
[2021-10-04] MEDS ORDERED: FAMOTIDINE 20 MG/2 ML VIAL ONE (23:41)
[2021-10-04] MEDS ORDERED: IV NORMAL SALINE 50ML 50 ML ONE (23:43)
[2021-10-05] MEDS ORDERED: EPINEPHrine 5 MG in IV NORMAL SALINE 250ML 250 ML IV ONE (00:15)
[2021-10-05 00:27] LABS: BASO % 0 % (0-3); EOS % 0 % (0-3); HEMATOCRIT 38.2 % (39.0-53.0); HEMOGLOBIN 11.9 g/dL (13.0-17.5); LYMPH # 0.9 x10^3/uL (1.0-4.8); LYMPH % 23 % (24-48); MEAN CORPUSCULAR HEMOGLOBIN 30 pg (25-35); MEAN CORPUSCULAR HGB CONC 31 g/dL (31-37); MEAN CORPUSCULAR VOLUME 97 fL (79-100); MONO # 0.4 x10^3/uL (0.0-1.1); MONO % 9 % (0-9); NEUT # 2.8 x10^3uL (1.8-7.7); NEUT % 68 % (31-73); PLATELET COUNT 214 x10^3/uL (140-400); RED BLOOD COUNT 3.93 x10^6/uL (4.30-5.70); RED CELL DISTRIBUTION WIDTH 20.9 % (11.5-14.5); WHITE BLOOD COUNT 4.1 x10^3/uL (4.0-11.0)
[2021-10-05 00:28] LABS: CALCIUM 8.9 mg/dL (8.5-10.1); CREATININE 1.9 mg/dL (0.7-1.3); GFR 34.5
--- NOTE | 2021-10-05 00:30 | RAD ---
XR CHEST 1V History: Reason: Check central line, unresponsive, intubated / Spl. Instructions: / History: Comparison: September 19, 2021 Findings: Status post placement left subclavian central line with tip projecting over the cavoatrial junction. Endotracheal tube with tip 4.2 cm above the sujit. Enteric tube with tip potentially projecting over the proximal stomach although not well evaluated due to technique and overlying structures. Low lung volumes. No pneumothorax. No pleural effusion. Normal heart size. Mild patchy bibasilar opacities. Impression: 1. Status post placement of endotracheal tube, enteric tube and left subclavian line. Distal aspect of enteric tube not well evaluated likely projecting over the proximal stomach. 2. Low lung volumes with patchy mid and bibasilar opacities, may represent atelectasis. Electronically signed by: Russel Castillo DO (10/05/2021 12:28 AM) [facility]
--- NOTE | 2021-10-05 00:36 | PHYS DOC ---
Past History Past Medical History: Anemia, CVA, Dementia, Diabetes, TIA Additional Past Medical Histor: GOUT; vit D def; obesity;scoliosis Past Surgical History: Other Additional Past Surgical Histo: feeding tube Alcohol Use: None General Adult EDM: Chief Complaint: MULTIPLE COMPLAINTS HPI: HPI: Cardiopulmonary arrest just after arrival to ED. See Code sheet for details. Patient is a 76 year old male who presents with hx of hypotension and mental status change after pain meds and ativan at [facility]. Patient received oxycodone 5 mg and 1 mg Ativan patient became more agitated and had decreased blood pressure. Pt. seen previously night for loss of gastric tube. Patient apparently pulled out G-tube with balloon up. This was replaced with wyatt on that night until a formal G-tube to be placed. Pt. a resident of [facility]. since . Patient has significant medical history of sepsis, acute cholecystitis, aphasia following cerebral infarction, hemiplegia and hemiparesis affecting left side nondominant. Patient has history of dysphagia, dysarthria, protein malnutrition, diabetes, neuropathy, generalized muscle weakness, dysphagia, oropharyngeal phase, vitamin D deficiency, obesity, hyperlipidemia, atrial fibrillation, idiopathic gout, scoliosis, spondylosis, deconditioning,and gait disorder. Patient's blood pressure at [facility] 71/41 prior to transport. Patient was maintaining oxygen saturation at 2 L nasal cannula at 96 to 97%. Review of Systems: Review of Systems: No review of systems due to patient's mental status Family History: Family History: Not contributory to presentation Current Medications: Current Meds: Current Medications Medications (Trade) Dose Ordered Sig/Kamron Start Time Stop Time Status Last Admin Dose Admin Epinephrine HCl (EPINEPHrine AMPULE) 1 mg STK-MED ONCE 10/04/21 23:39 10/04/21 23:40 DC Epinephrine HCl 5 mg/Sodium Chloride 255 ml @ 27.846 mls/ hr ONCE ONCE 10/05/21 00:15 10/05/21 09:24 Famotidine (Pepcid Vial) 20 mg STK-MED ONCE 10/04/21 23:41 10/04/21 23:41 DC Sodium Chloride 50 ml @ As Directed STK-MED ONCE 10/04/21 23:43 10/04/21 23:43 DC Allergies: Allergies: Allergies Coded Allergies Type Severity Reaction Last Updated Verified No Known Drug Allergies 10/04/21 No Physical Exam: PE: Post code exam- Constitutional: In acute distress, morbid and appearance. [] HENT: Normocephalic, atraumatic, bilateral external ears normal, oropharynx moist, no oral exudates, nose normal. [] Eyes: PERRLA, EOMI, conjunctiva pale, no discharge. [] Neck: Limited Cardiovascular: Tachycardia heart rate regular rhythm, no murmur [] PMI to the left Lungs & Thorax: Bilateral breath sounds equal apex with more rhonchi on right and basilar crackles on auscultation [] Abdomen: Bowel sounds decreased, soft, no tenderness, no masses, no pulsatile masses. Wyatt still and G-tube site. Obese. Wyatt Skin: Warm, dry, no erythema, no rash. Pale. Poor turgor. Back: No tenderness, no CVA tenderness. [] Extremities: no cyanosis, no clubbing, ROM intact, left arm edema. [] Neurologic: Nonresponsive, no response to noxious stimuli, EKG: EKG: My interpretation EKG shows a sinus rhythm at 76. Irregular rate and rhythm consistent with A. fib. Prolonged QT interval. Low voltage throughout. Abnormal EKG time of EKG is 0 09 minutes [] Radiology/Procedures: Radiology/Procedures: [][address] [address] IMAGING REPORT Signed PATIENT: LUDIN ESTRADA ACCOUNT: [id number] : 1945 LOCATION: ER AGE: 76 SEX: M EXAM STATUS: REG ER ORD. PHYSICIAN: DIANE RAND MD REASON: Check central line, unresponsive, intubated PROCEDURE: PORTABLE CHEST 1V XR CHEST 1V History: Reason: Check central line, unresponsive, intubated / Spl. Instructions: / History: Comparison: September 19, 2021 Findings: Status post placement left subclavian central line with tip projecting over the cavoatrial junction. Endotracheal tube with tip 4.2 cm above the sujit. Enteric tube with tip potentially projecting over the proximal stomach although not well evaluated due to technique and overlying structures. Low lung volumes. No pneumothorax. No pleural effusion. Normal heart size. Mild patchy bibasilar opacities. Impression: 1. Status post placement of endotracheal tube, enteric tube and left subclavian line. Distal aspect of enteric tube not well evaluated likely projecting over the proximal stomach. 2. Low lung volumes with patchy mid and bibasilar opacities, may represent atelectasis. Electronically signed by: Russel Castillo DO (10/05/2021 12:28 AM) [facility] DICTATED AND SIGNED BY: RUSSEL CASTILLO DO DATE: 10/05/2124 CC: DIANE RAND MD; PCP,UNKNOWN ~MTH0 0 Heart Score: C/O Chest Pain: N/A Risk Factors: Risk Factors: DM, Current or recent (<one month) smoker, HTN, HLP, family history of CAD, obesity. Risk Scores: Score 0 - 3: 2.5% MACE over next 6 weeks - Discharge Home Score 4 - 6: 20.3% MACE over next 6 weeks - Admit for Clinical Observation Score 7 - 10: 72.7% MACE over next 6 weeks - Early Invasive Strategies Course & Med Decision Making: Course & Med Decision Making Pertinent Labs and Imaging studies reviewed. (See chart for details) See code sheet for detail s Procedure note- ED placement by videoscope 7.5 to 22 cm. CO2 change and breath sounds equal at apex. Patient class III Mallampati. Verified positionin g with chest x-ray. Follow the tube. Oxygen stable. Vent management. OG placement- Return gastric fluid . Some blood noted is aspirate. Position by borborygmi and chest x-ray Central line placement-need for pressors and frequent lab draws. Left sub clavian prepped with prep kit. Sterile draping was masked at gown. Patient placed in Trendelenburg . 1 stick and central line placed over wire. Return of blood all [address] with biopatch. OpSite placed over site. Site confirmed with x-ray. No pneumothorax. Discussed presentation, testing and treatment plan with . Pt. to transport to [facility] for further care. Family notificed of code by nursing. Still awaiting transport [facility]. 0100 hrs. Impression: 1. Altered mental status 2. History of hypotension 3. Cardiopulmonary arrest 4. Anemia 11.9 hemoglobin 5. Elevated creatinine 1.9 6. Diabetes glucose 209 7. Elevated troponin 35 8. Metabolic Acidosis ph 6.9, CO2 31,Oxy 165 9. Hypotension [] Dragon Disclaimer: Dragon Disclaimer: This electronic medical record was generated, in whole or in part, using a voice recognition dictation system. Departure Departure: Referrals: PCP,UNKNOWN (PCP) Shani Disclaimer This chart was dictated in whole or in part using Voice Recognition software in a busy, high-work load, and often noisy Emergency Department environment. It may contain unintended and wholly unrecognized errors or omissions. DIANE RAND MD Oct 05, 2021 00:36
[2021-10-05 00:49] LABS: ANISOCYTOSIS MOD; PLT ESTIMATE ADEQUATE (ADEQUATE)
[2021-10-05] MEDS ORDERED: NOREPINEPHRINE BITARTRATE 4 MG/4 ML VIAL. IV ONE (00:56)
[2021-10-05] MEDS ORDERED: VANCOMYCIN 1 GM in IV NORMAL SALINE 250ML 250 ML IV ONE (01:00)
[2021-10-05] MEDS ORDERED: FAMOTIDINE 20 MG/2 ML VIAL ONE (01:00)
[2021-10-05] MEDS ORDERED: NOREPINEPHRINE BITARTRATE 8 MG in IV DEXTROSE 5% 250 ML IV PRN (01:00)
[2021-10-05] MEDS ORDERED: IV DEXTROSE 5% 250 ML IV ONE (01:00)
[2021-10-05] MEDS ORDERED: IV NORMAL SALINE 250 ML BAG ONE (01:00)
[2021-10-05] MEDS ORDERED: ERYTHROMYCIN 0.5% OPHTH OINTMENT 1GM TUBE. OU ONE (01:00)
[2021-10-05] MEDS ORDERED: SODIUM BICARB ADULT 8.4% 50 MEQ/50 ML DISP.SYRIN. IV ONE (01:00)
[2021-10-05] MEDS ORDERED: IV NORMAL SALINE 250ML 250 ML ONE ×4 (01:01→01:55)
[2021-10-05 01:14] LABS: INFLUENZA A PATIENT NEGATIVE (NEGATIVE); INFLUENZA B PATIENT NEGATIVE (NEGATIVE)
[2021-10-05] MEDS ORDERED: NOREPINEPHRINE BITARTRATE 8 MG in IV NORMAL SALINE 250ML 250 ML IV PRN (01:14)
[2021-10-05 01:35] VITALS: BP 74/36
--- NOTE | 2021-10-05 01:37 | EKG ---
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
[2021-10-05 01:42] LABS: BGAS PH 6.96 (7.35-7.46)
[2021-10-05] MEDS ORDERED: cefTRIAXone SODIUM 1 GM VIAL ONE (01:48)
[2021-10-05] MEDS ORDERED: IV NORMAL SALINE 50ML 50 ML ONE (01:48)
[2021-10-05] MEDS ORDERED: VANCOMYCIN 1 GM VIAL. ONE ×2 (01:48→01:56)
--- NOTE | 2021-10-05 07:20 | PHYS DOC ---
Past History Past Medical History: CVA, Dementia, Diabetes, TIA Additional Past Medical Histor: GOUT; vit D def; obesity;scoliosis Past Surgical History: Other Additional Past Surgical Histo: feeding tube Alcohol Use: None General Adult HPI: HPI: Note this is a duplicate chart - See earlier chart. Allergies: Allergies: Allergies Coded Allergies Type Severity Reaction Last Updated Verified No Known Drug Allergies 10/04/21 No EKG: EKG: [] Radiology/Procedures: Radiology/Procedures: [] Heart Score: C/O Chest Pain: N/A Risk Factors: Risk Factors: DM, Current or recent (<one month) smoker, HTN, HLP, family history of CAD, obesity. Course & Med Decision Making: Course & Med Decision Making Pertinent Labs and Imaging studies reviewed. (See chart for details) Note this is duplicate chart should be removed from record. See earlier chart. [] Dragon Disclaimer: Dragon Disclaimer: This electronic medical record was generated, in whole or in part, using a voice recognition dictation system. Departure Departure: Referrals: NON,STAFF (PCP) DIANE RAND MD Oct 05, 2021 07:20
== END 2021-10-05 01:50 | disposition short-term general hospital (02) ==
LOC: ER 23:00
DX: I46.9 Cardiac arrest, cause unspecified (principal); D64.9 Anemia, unspecified; R79.89 Other specified abnormal findings of blood chemistry; E11.9 Type 2 diabetes mellitus without complications; R77.8 Other specified abnormalities of plasma proteins; E87.2 Acidosis; I95.9 Hypotension, unspecified; R41.82 Altered mental status, unspecified; F03.90 Unspecified dementia, unspecified severity, without behavioral disturbance, psychotic disturbance, mood disturbance, and anxiety; Z20.822 Contact with and (suspected) exposure to COVID-19; Z86.73 Personal history of transient ischemic attack (TIA), and cerebral infarction without residual deficits
CPT/HCPCS: 31500; 36415; 36556; 71045; 80048; 82803; 83605; 84484; 85025; 87428; 93005; 96365; 96374; 96375; 99285; J0171; J0696; J3370; J3490; J7050